=== PATIENT | male | born 1980 | race Caucasian/White ===

== ENCOUNTER 2016-11-13 07:51 | Outpatient (CLI) ==
[2015-04-20 18:07] VITALS: BMI 27.3
[2016-11-13 08:45] LABS: BASOPHILS % (AUTO) 0.6 % (0.0-3.0); EOSINOPHILS % (AUTO) 0.3 % (0.0-7.0); HEMATOCRIT 50.9 % (42.0-52.0); HEMOGLOBIN 17.4 g/dl (14.0-18.0); IMMATURE GRANULOCYTE % (AUTO) 0.6 % (0.0-5.0); LYMPHOCYTES # (AUTO) 1.9 K/uL (0.60-3.4); LYMPHOCYTES % (AUTO) 27.7 (10.0-50.0); MEAN CORPUSCULAR HEMOGLOBIN 31.2 pg (27.0-31.0); MEAN CORPUSCULAR HGB CONC 34.2 (31.8-35.4); MEAN CORPUSCULAR VOLUME 91.2 fl (80.0-94.0); MONOCYTES # (AUTO) 0.5 K/uL (0.4-2.0); MONOCYTES % (AUTO) 7.8 (0-10); NEUTROPHILS # (AUTO) 4.3 K/ul (2.0-6.9); PLATELET COUNT 232 10^3/uL (140-440); RED BLOOD COUNT 5.58 10^6/ul (4.70-6.10); WHITE BLOOD COUNT 6.76 K/ul (4.2-10.2)
[2016-11-13 08:46] LABS: BILIRUBIN,URINE Negative (NEGATIVE); KETONES,URINE Negative (NEGATIVE); LEUKOCYTE ESTERASE ,URINE Negative (NEGATIVE); NITRITE,URINE Negative (NEGATIVE); PROTEIN,URINE 1+ (NEGATIVE); URINE, BLOOD 1+ (NEGATIVE)
[2016-11-13 08:58] LABS: ADD URINE MICROSCOPIC YES
[2016-11-13 09:24] LABS: ALBUMIN 4.2 g/dL (3.4-5.0); ALBUMIN/GLOBULIN RATIO 1.02; ANION GAP 13.2; BILIRUBIN,TOTAL 0.45 mg/dL (0.00-1.20); BUN/CREATININE RATIO 11.76; CALCIUM 9.8 mg/dL (8.2-10.2); CHOL/HDL RATIO 3.3 (4.5-6.4); CREATININE 1.19 mg/dL (0.60-1.10); POTASSIUM 4.2 mmol/L (3.5-5.1); TOTAL PROTEIN 8.3 g/dL (6.4-8.2)
--- NOTE | 2016-11-13 09:26 | MRI ---
EXAM: Brain MRI without contrast. HISTORY: Headache. COMPARISON: None. TECHNIQUE: Multiplanar, multisequence MR images were acquired of the brain before and after adminis tration of intravenous contrast. FINDINGS: The midline structures are central and the craniocervical junction is unremarkable. Ther e is mild enlargement of the subarachnoid space over the convexity that is greatest overlying the pa rietal lobes bilaterally. There is mild widening of some parietal sulci. The ventricles are normal in size. These findings are compatible with normal variation. The brain parenchyma has no diffusion restriction to suggest acute hypoperfusion or infarction. The re are no abnormal T2 hyperintensities or foci of dark gradient echo signal. The corpus callosum love s a normal configuration. The pituitary gland is unremarkable. There are no intraorbital masses. Paranasal sinuses, middle ears and the left mastoid air cells are clear. There is mild mucosal thickening in a few inferior right mastoid air cells. There is mild adenoidal hypertrophy with a few small nasopharyngeal submucosal cysts. Flow voids are present in the major intracranial arteries. There is dolichoectasia of the cavernous segments of both internal carotid arteries, more so on the right. Dural venous sinuses are patent. IMPRESSION: No intracranial hemorrhage, mass or acute cerebral infarct. Negative brain MRI.
== END 2016-11-13 07:52 | disposition home or self-care (01) ==
LOC: RAD 07:51
PROVIDERS: ATTEND Nurse Practitioner Family
DX: R42 Dizziness and giddiness (principal); R10.9 Unspecified abdominal pain; R51 Headache; H53.8 Other visual disturbances; F43.9 Reaction to severe stress, unspecified
CPT/HCPCS: 36415; 80053; 80061; 81001; 84443; 85025; 93005; 93010

== ENCOUNTER 2016-11-20 08:43 | Outpatient (CLI) ==
[2015-04-20 18:07] VITALS: BMI 27.3
[2016-11-20 09:10] LABS: BASOPHILS # (AUTO) 0.1 K/uL (0-0.2); BASOPHILS % (AUTO) 0.5 % (0.0-3.0); EOSINOPHILS % (AUTO) 0.4 % (0.0-7.0); HEMOGLOBIN 16.6 g/dl (14.0-18.0); IMMATURE GRANULOCYTE % (AUTO) 0.6 % (0.0-5.0); LYMPHOCYTES % (AUTO) 20.9 (10.0-50.0); MEAN CORPUSCULAR HEMOGLOBIN 31.1 pg (27.0-31.0); MEAN CORPUSCULAR HGB CONC 34.6 (31.8-35.4); MEAN CORPUSCULAR VOLUME 90.1 fl (80.0-94.0); MONOCYTES # (AUTO) 0.8 K/uL (0.4-2.0); MONOCYTES % (AUTO) 8.5 (0-10); NEUTROPHILS # (AUTO) 6.7 K/ul (2.0-6.9); NEUTROPHILS % (AUTO) 69.1; PLATELET COUNT 223 10^3/uL (140-440); RED BLOOD COUNT 5.33 10^6/ul (4.70-6.10)
[2016-11-20 09:14] LABS: BILIRUBIN,URINE Negative (NEGATIVE); KETONES,URINE Negative (NEGATIVE); LEUKOCYTE ESTERASE ,URINE Negative (NEGATIVE); NITRITE,URINE Negative (NEGATIVE); PH,URINE 5.5 (5-9); PROTEIN,URINE 1+ (NEGATIVE); URINE, BLOOD 1+ (NEGATIVE)
--- NOTE | 2016-11-20 09:18 | CT ---
CT of the abdomen pelvis without intravenous contrast. Comparison: None available. Reason for exam: Unspecified abdominal pain. FINDINGS: No focal consolidation or pleural effusion is seen in the partially imaged lung bases. Image interpretation is limited by the lack of intravenous contrast administration. The liver, gallbladder, spleen, adrenal glands, and pancreas appear grossly unremarkable within limi tations of a noncontrasted study. No hydronephrosis, hydroureter, or nephrolithiasis is seen in either kidney. No focal small bowel dilatation or transition point. The appendix appears grossly unremarkable. No inflammatory changes are seen within the abdominal or pelvic fat. No intra-abdominal free air or pelvic free fluid. The bladder appears grossly unremarkable. No suspicious appearing osteoblastic or osteolytic lesion. Impression: No acute inflammatory findings are seen within the abdomen or pelvis.
[2016-11-20 09:20] LABS: ADD URINE MICROSCOPIC YES
[2016-11-20 09:32] LABS: ALBUMIN 4.3 g/dL (3.4-5.0); ALBUMIN/GLOBULIN RATIO 1.19; ANION GAP 16.9; BILIRUBIN,TOTAL 0.6 mg/dL (0.00-1.20); BUN/CREATININE RATIO 12.6; CALCIUM 10.1 mg/dL (8.2-10.2); CREATININE 1.19 mg/dL (0.60-1.10); POTASSIUM 4.9 mmol/L (3.5-5.1); TOTAL PROTEIN 7.9 g/dL (6.4-8.2)
== END 2016-11-20 08:44 | disposition home or self-care (01) ==
LOC: RAD 08:43
PROVIDERS: ATTEND Nurse Practitioner Family
DX: R10.9 Unspecified abdominal pain (principal); R10.817 Generalized abdominal tenderness; R19.7 Diarrhea, unspecified; R31.9 Hematuria, unspecified
CPT/HCPCS: 36415; 80053; 81001; 82150; 83690; 85025

== ENCOUNTER 2016-11-24 08:55 | Emergency (ER) ==
[2016-11-24 08:56] VITALS: BMI 27.3
[2016-11-24 09:12] VITALS: BP 142/90; TEMP 96.9
[2016-11-24 09:38] LABS: BASOPHILS # (AUTO) 0.1 K/uL (0-0.2); BASOPHILS % (AUTO) 0.5 % (0.0-3.0); EOSINOPHILS % (AUTO) 0.2 % (0.0-7.0); HEMATOCRIT 47.4 % (42.0-52.0); HEMOGLOBIN 16.3 g/dl (14.0-18.0); IMMATURE GRANULOCYTE % (AUTO) 0.5 % (0.0-5.0); LYMPHOCYTES # (AUTO) 1.8 K/uL (0.60-3.4); LYMPHOCYTES % (AUTO) 19.7 (10.0-50.0); MEAN CORPUSCULAR HEMOGLOBIN 31.1 pg (27.0-31.0); MEAN CORPUSCULAR HGB CONC 34.4 (31.8-35.4); MEAN CORPUSCULAR VOLUME 90.5 fl (80.0-94.0); MONOCYTES # (AUTO) 0.6 K/uL (0.4-2.0); MONOCYTES % (AUTO) 6.4 (0-10); NEUTROPHILS # (AUTO) 6.7 K/ul (2.0-6.9); NEUTROPHILS % (AUTO) 72.7; PLATELET COUNT 240 10^3/uL (140-440); RED BLOOD COUNT 5.24 10^6/ul (4.70-6.10); WHITE BLOOD COUNT 9.26 K/ul (4.2-10.2)
[2016-11-24 09:52] LABS: BILIRUBIN,URINE Negative (NEGATIVE); KETONES,URINE Negative (NEGATIVE); LEUKOCYTE ESTERASE ,URINE Negative (NEGATIVE); NITRITE,URINE Negative (NEGATIVE); PH,URINE 7.5 (5-9); PROTEIN,URINE Negative (NEGATIVE); URINE, BLOOD Trace-lysed (NEGATIVE)
[2016-11-24 09:54] LABS: ALBUMIN 4.2 g/dL (3.4-5.0); ALBUMIN/GLOBULIN RATIO 1.17; ANION GAP 17.8; BILIRUBIN,TOTAL 0.62 mg/dL (0.00-1.20); BUN/CREATININE RATIO 14.54; CALCIUM 9.7 mg/dL (8.2-10.2); CREATININE 1.1 mg/dL (0.60-1.10); POTASSIUM 3.8 mmol/L (3.5-5.1); TOTAL PROTEIN 7.8 g/dL (6.4-8.2)
[2016-11-24 09:56] LABS: ADD URINE MICROSCOPIC YES
--- NOTE | 2016-11-24 09:56 | CT ---
EXAM: Noncontrast CT of the abdomen and pelvis. HISTORY: Left lower quadrant pain. COMPARISON: 06/10/2016 TECHNIQUE: Contiguous axial images at 3 mm intervals were obtained from lung bases through the pelv is. No contrast was given. Coronal reformats were reviewed. FINDINGS: The study is limited without contrast. CHEST: The lung bases show no lobar consolidation or effusion. The heart size is within normal sosa its. ABDOMEN: Evaluation of the soft tissue organs is limited without contrast. LIVER: Noncontrast images of the liver show no solid mass lesion or intrahepatic ductal dilatation. BILIARY: The gallbladder is normally distended. No gallstones are noted. No pericholecystic fluid or inflammation. The common bile duct is normal. SPLEEN: The spleen is unremarkable. PANCREAS: The pancreas shows no mass lesion or peripancreatic inflammation. ADRENAL GLANDS: The adrenal glands are normal. RENAL: The kidneys show no hydronephrosis or nephrolithiasis. There are no obstructing ureteral st ones. No solid mass lesions are identified. RETROPERITONEUM: The aorta is unopacified. No aneurysm is identified. No aortic calcifications ar e seen. There is no retroperitoneal or mesenteric adenopathy. BOWEL: The bowel is unopacified. There is no obstruction or inflammatory change. There is no free fluid or free air. No significant inflammatory changes are seen. Scattered diverticula seen with out evidence of acute diverticulitis. The appendix is identified and is normal. PELVIS: BLADDER: The bladder is well distended and appears normal. GENITOURINARY STRUCTURES: Unremarkable. OSSEOUS STRUCTURES: The osseous structures are normal for age. IMPRESSION 1. No acute intra-abdominal abnormality. Limited study without contrast. No obstructing ureteral stones. 2. The appendix is normal. 3. Diverticulosis without evidence of acute diverticulitis.
--- NOTE | 2016-11-24 10:40 | ED.PDOC ---
General ED Provider: Dr. CORINNE MALONE Chief Complaint: Nausea/Vomiting Stated Complaint: abdominal pain Time Seen by Physician: 09:00 (seen with harjinder at all times ) Mode of Arrival: Walk-In Information Source: Patient Exam Limitations: No limitations [facility] and Triage Documentation Reviewed and Agree: Yes GI Complaint Exam - Abdominal Pain Complaint/Exam Onset: Gradual Duration: 14 weeks Symptoms Are: Still present Timing: Intermittent Initial Severity: Mild Current Severity: Mild Location of Pain: Diffuse Character: Reports: Dull Aggravating: Reports: None Alleviating: Reports: None Associated Signs and Symptoms: Denies: Diaphoresis, Fever, Cough, Chest pain, Dizziness, Back pain, Constipation, Blood in stool, Dysuria, Urinary frequency, Decreased urine output, Decreased appetite, Discharge, Nausea, Vomiting, Diarrhea, Decreased activity Related History: Reports: Similar episode AAA Risk Factors: Reports: None Cardiac Risk Factors: Reports: None Testicular Torsion Risk Factors: Reports: None Surgical Obstruction Risk Factors: Reports: None Related Surgical History: Reports: None Abdominal Findings: Present: None Differential Diagnoses: Bowel Obstruction, Constipation, Diverticulitis, Gastroenteritis Review of Systems - Review Of Systems Constitutional: Reports: No symptoms Eyes: Reports: No symptoms Ears, Nose, Mouth, Throat: Reports: No symptoms Respiratory: Reports: No symptoms Cardiac: Reports: No symptoms GI: Reports: Abdominal pain : Reports: No symptoms Musculoskeletal: Reports: No symptoms Skin: Reports: No symptoms Neurological: Reports: No symptoms Endocrine: Reports: No symptoms Hematologic/Lymphatic: Reports: No symptoms All Other Systems: Reviewed and Negative Past Medical History - Past Medical History Previously Healthy: Yes Endocrine: Reports: None Cardiovascular: Reports: None Respiratory: Reports: None Hematological: Reports: None Gastrointestinal: Reports: None Genitourinary: Reports: None Neuro/Psych: Reports: None Musculoskeletal: Reports: None Cancer: Reports: None - Surgical History General Surgical History: Reports: Unknown - Family History Family History: Reports: Unknown - Social History Smoking Status: Current every day smoker, Heavy tobacco smoker Hx Substance Use: No Alcohol Screening: Occasionally Physical Exam - Physical Exam Appearance: Well-appearing, No pain distress, Well-nourished Eyes: VA, EOMI, Conjunctiva clear ENT: Ears normal, Nose normal, Oropharynx normal Respiratory: Airway patent, Breath sounds clear, Breath sounds equal, Respirations nonlabored Cardiovascular: RRR, Pulses normal, No rub, No murmur GI/: Soft, Nontender, No masses, Bowel sounds normal, No Organomegaly Musculoskeletal: Normal strength, ROM intact, No edema, No calf tenderness Skin: Warm, Dry, Normal color Neurological: Sensation intact, Motor intact, Reflexes intact, Cranial nerves intact, Alert, Oriented Psychiatric: Affect appropriate, Mood appropriate Interpretation - Radiology Interpretation Radiology Interpretation By: Radiologist Radiology Results: No acute changes Critical Care Note - Critical Care Note Total Time (mins): 0 Course - Course Hematology/Chemistry: 11/24/16 09:20 11/24/16 09:35 Orders, Labs, Meds: Lab Review 11/24/16 11/24/16 11/24/16 09:20 09:35 09:43 WBC 9.26 RBC 5.24 Hgb 16.3 Hct 47.4 MCV 90.5 MCH 31.1 H MCHC 34.4 RDW Coeff of Domo 13.4 Plt Count 240 Immature Gran % (Auto) 0.5 Neut % (Auto) 72.7 Lymph % (Auto) 19.7 Archuleta % (Auto) 6.4 Eos % (Auto) 0.2 Baso % (Auto) 0.5 Immature Gran # (Auto) 0.1 Neut # 6.7 Lymph # 1.8 Archuleta # 0.6 Eos # 0.0 Baso # 0.1 Sodium 141 Potassium 3.8 Chloride 101 Carbon Dioxide 26 Anion Gap 17.8 BUN 16 Creatinine 1.10 Estimated GFR (MDRD) 75.00 BUN/Creatinine Ratio 14.54 Glucose 103 H Calcium 9.7 Total Bilirubin 0.62 AST 28 ALT 22 Alkaline Phosphatase 73 Total Protein 7.8 Albumin 4.2 Globulin 3.6 Albumin/Globulin Ratio 1.17 Amylase 40 Lipase 48 Urine Color Yellow Urine Clarity Clear Urine pH 7.5 Ur Specific [place] 1.020 Urine Protein Negative Urine Glucose (UA) Negative Urine Ketones Negative Urine Blood Trace-lysed Urine Nitrite Negative Urine Bilirubin Negative Urine Urobilinogen 0.2 Ur Leukocyte Esterase Negative Urine Microscopic RBC 2-5 Ur Squamous Epith Cells Not present Orders Category Date Time Status AMYLASE Stat LAB 11/24/16 09:35 Completed CBC W/ AUTO DIFF Stat LAB 11/24/16 09:20 Ordered COMPREHENSIVE METABOLIC PANEL Stat LAB 11/24/16 09:20 Ordered LIPASE Stat LAB 11/24/16 09:35 Completed URINALYSIS C & S IF INDICATED Stat LAB 11/24/16 09:[address] ABDOMEN/PELVIS WO CONTRAST Stat RADS 11/24/16 09:21 Ordered Vital Signs: Temp Pulse Resp BP Pulse Ox 11/24/16 08:57 96.9 F L 69 20 142/90 H 96 Departure - Departure Time of Disposition: 10:41 Disposition: HOME SELF-CARE Discharge Problem: Nausea, Vomiting Abdominal pain Qualifiers: Abdominal location: generalized Qualifier Code: (R10.84) Generalized abdominal pain Instructions: Abdominal Pain (ED) Condition: Good Pt referred to PMD for follow-up: Yes Additional Instructions: Please call your Family Physician as soon as possible to schedule a follow-up appointment. Allergies/Adverse Reactions: Allergies venom-wasp [wasp venom] Adverse Reaction (Verified 11/24/16 09:05) IV Contrast Adverse Reaction (Uncoded 01/01/15 17:24)
== END 2016-11-24 10:57 | disposition home or self-care (01) ==
LOC: ED 08:55
DX: R11.2 Nausea with vomiting, unspecified (principal); R10.84 Generalized abdominal pain; F17.210 Nicotine dependence, cigarettes, uncomplicated
CPT/HCPCS: 36415; 80053; 81001; 82150; 83690; 85025; 99283

== ENCOUNTER 2017-06-08 02:04 | Emergency (ER) ==
[2017-06-08] MEDS ORDERED: LIDOCAINE HCL 1% SDV SUBCUT STA (02:12)
[2017-06-08 02:14] VITALS: TEMP 97.8; BMI 33.4
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
[2017-06-08 02:45] VITALS: BP 136/88
== END 2017-06-08 02:36 | disposition home or self-care (01) ==
LOC: ED 02:04
DX: S61.217A Laceration without foreign body of left little finger without damage to nail, initial encounter (principal); W25.XXXA Contact with sharp glass, initial encounter; F17.210 Nicotine dependence, cigarettes, uncomplicated
CPT/HCPCS: 99283

== ENCOUNTER 2017-07-15 21:35 | Emergency (ER) | payer OTHER ==
[2017-07-15 21:38] VITALS: TEMP 97.6; BMI 28.1
[2017-07-15] MEDS ORDERED: AUGMENTIN 500-125 MG TAB PO STA (21:46)
[2017-07-15] MEDS ORDERED: CATAPRES PO STA (21:46)
--- NOTE | 2017-07-15 21:50 | ED.PDOC ---
General ED Provider: Dr. VA GARCIA Chief Complaint: Sore Throat Stated Complaint: c/o sore throat, hurts to swallow, left side neck swollen,. also c/o leg are swollen some, takes water pill. Time Seen by Physician: 21:50 Mode of Arrival: Police Information Source: Patient, Police Primary Care Provider: [facility] Nursing and Triage Documentation Reviewed and Agree: Yes Reviewed sepsis parameters & appropriate labs ordered?: No System Inflammatory Response Syndrome: Not Applicable Sepsis Protocol: For patient's 13 years and over: Temp is 96.8 and below OR 101 and greater Pulse >90 BPM Resp >20/minute Acutely Altered Mental Status Are patient's symptoms suggestive of a new infection, such as: -Pneumonia -Skin, Soft Tissue -Endocarditis -UTI -Bone, Joint Infection -Implantable Device -Acute Abdominal Infection -Wound Infection -Meningitis -Blood Stream Catheter Infection -Unknown EENT Complaint Exam - Throat Complaint/Exam Symptoms Are: Still present Timimg: Constant Initial Severity: Mild Current Severity: Mild Aggravating: Reports: Eating Alleviating: Reports: None Associated Signs and Symptoms: Reports: Dysphagia. Denies: Fever, Drooling, Foreign body sensation, Chills, Cough, Wheezing, Hoarseness, Sinus discomfort, Nasal congestion, Difficulty breathing, Lethargy, Irritability, Decreased activity, Vomiting, Diarrhea, Decreased hearing, Ear drainage Uvula Midline: No Darshana-tonsillar Fluctuence: No Scarlatinaform Rash Present: No Stridor Present: No Sinus Tenderness Present: No Tonsillar Hypertrophy Present: No Tonsillar Exudate Present: No Darshana-tonsillar Swelling Present: No Adenopathy Present: No Splenomegaly Present: No Differential Diagnoses: Pharyngitis Review of Systems - Review Of Systems Constitutional: Reports: No symptoms Eyes: Reports: No symptoms Ears, Nose, Mouth, Throat: Reports: Throat pain Respiratory: Reports: No symptoms Cardiac: Reports: Edema GI: Reports: No symptoms : Reports: No symptoms Musculoskeletal: Reports: No symptoms Skin: Reports: No symptoms Neurological: Reports: No symptoms Endocrine: Reports: No symptoms Hematologic/Lymphatic: Reports: No symptoms All Other Systems: Reviewed and Negative Past Medical History - Past Medical History Previously Healthy: Yes Endocrine: Reports: None Cardiovascular: Reports: Hypertension Respiratory: Reports: None Hematological: Reports: None Gastrointestinal: Reports: None Genitourinary: Reports: None Neuro/Psych: Reports: None Musculoskeletal: Reports: None Cancer: Reports: None - Surgical History General Surgical History: Reports: Unknown - Family History Family History: Reports: Unknown - Social History Smoking Status: Former smoker Hx Substance Use: No Alcohol Screening: None - Immunizations Tetanus Shot up to Date: Yes Physical Exam - Physical Exam Appearance: Well-appearing, No pain distress, Well-nourished Eyes: VA, EOMI, Conjunctiva clear ENT: Erythema Respiratory: Airway patent, Breath sounds clear, Breath sounds equal, Respirations nonlabored Cardiovascular: RRR, Pulses normal, No rub, No murmur GI/: Soft, Nontender, No masses, Bowel sounds normal, No Organomegaly Musculoskeletal: Normal strength, ROM intact, No edema, No calf tenderness Skin: Warm, Dry, Normal color Neurological: Sensation intact, Motor intact, Reflexes intact, Cranial nerves intact, Alert, Oriented Psychiatric: Affect appropriate, Mood appropriate Re-Evaluation - Re-Evaluation Time of Re-Evaluation: 22:23 Status: Improved Critical Care Note - Critical Care Note Total Time (mins): 20 Course - Course Orders, Labs, Meds: Orders Category Date Time Status MOLECULAR GROUP A STREP Stat LAB 07/15/17 21:46 Uncollected Amoxicillin/Potassium Clav [Augmentin 500-125 mg Tab] MEDS 07/15/17 21:46 Stat 1 tab PO ONCE STA Clonidine HCl [Catapres] MEDS 07/15/17 21:46 Stat 0.2 mg PO ONCE STA Medications Discontinued Medications Generic Name Dose Route Start Last Admin Trade Name Freq PRN Reason Stop Dose Admin Amoxicillin/Clavulanate Potassium 1 tab 07/15/17 21:46 Augmentin 500-125 Mg Tab PO 07/15/17 21:47 ONCE STA Clonidine 0.2 mg 07/15/17 21:46 Catapres PO 07/15/17 21:47 ONCE STA Vital Signs: Temp Pulse Resp BP Pulse Ox 07/15/17 21:36 97.6 F 85 14 147/100 H 100 Departure - Departure Time of Disposition: 21:55 Disposition: HOME SELF-CARE Discharge Problem: Sore throat symptom, Essential hypertension Instructions: Pharyngitis (ED) Condition: Stable Pt referred to PMD for follow-up: Yes IPMP verified?: No Additional Instructions: No salt diet F/u in C in 3-4 days keep checking BP take Lisinopril/HCTZ 10-12.5 po bid Prescriptions: Amoxicillin/Potassium Clav [Augmentin 500-125 mg Tab] 1 tab PO Q12HR #14 tablet Prednisone 10 mg PO BIDWM #14 tablet Allergies/Adverse Reactions: Allergies venom-wasp [wasp venom] Adverse Reaction (Verified 11/24/16 09:05) IV Contrast Adverse Reaction (Uncoded 01/01/15 17:24) Home Medications: Ambulatory Orders Amoxicillin/Potassium Clav [Augmentin 500-125 mg Tab] 1 tab PO Q12HR #14 tablet 07/15/17 Aspirin [Aspirin Chewable] 81 mg PO DAILY 07/15/17 Gabapentin 100 mg PO DAILY 07/15/17 Lisinopril/Hydrochlorothiazide [Lisinopril-Hctz 10-12.5 mg Tab] 1 each PO DAILY 07/15/17 Prednisone 10 mg PO BIDWM #14 tablet 07/15/17 Disposition Discussed With: Patient
[2017-07-15 22:07] VITALS: BP 134/75
== END 2017-07-15 22:35 | disposition home or self-care (01) ==
LOC: ED 21:35
DX: J02.9 Acute pharyngitis, unspecified (principal); I10 Essential (primary) hypertension; M79.89 Other specified soft tissue disorders
CPT/HCPCS: 87651; 99283

== ENCOUNTER 2017-08-25 15:57 | Emergency (ER) ==
[2017-08-25 16:10] VITALS: BP 120/97; TEMP 97.9; BMI 28.0
[2017-08-25] MEDS ORDERED: LIDOCAINE HCL 1% SDV SUBCUT STA (16:29)
--- NOTE | 2017-08-25 16:31 | ED.PDOC ---
General ED Provider: Dr. CORINNE MALONE Chief Complaint: Laceration Stated Complaint: head injury Time Seen by Physician: 16:00 (no loc, no neck pain) Mode of Arrival: Walk-In Information Source: Patient, Police Exam Limitations: No limitations [facility] and Triage Documentation Reviewed and Agree: Yes Reviewed sepsis parameters & appropriate labs ordered?: Yes System Inflammatory Response Syndrome: Not Applicable Sepsis Protocol: For patient's 13 years and over: Temp is 96.8 and below OR 101 and greater Pulse >90 BPM Resp >20/minute Acutely Altered Mental Status Are patient's symptoms suggestive of a new infection, such as: -Pneumonia -Skin, Soft Tissue -Endocarditis -UTI -Bone, Joint Infection -Implantable Device -Acute Abdominal Infection -Wound Infection -Meningitis -Blood Stream Catheter Infection -Unknown Trauma/Injury Complaint Exam - Head Injury Complaint/Exam Location of Pain: Reports: Scalp Mechanism of Injury: Reports: Trauma Onset/Duration: 30 min ago Symptoms Are: Still present Initial Severity: Mild Current Severity: Mild Character: Reports: Dull Aggravating: Reports: None Alleviating: Reports: None Associated Signs and Symptoms: Denies: Confusion, Memory loss, Seizure, Epistaxis, Dental malocclusion, Neck pain, Nausea, Vomiting Loss of Consciousness: None SDH Risk Factors: Present: None Cervical Spine Injury Risk Factors: Present: None Related Surgical History: Reports: None Immobilization Removed Post Exam: No Head Injury Findings: Present: Normal findings Glascow Coma Scale (see protocol): 15 Focal Weakness: Present: None Focal Sensory Loss: Present: None Gait: Normal Gag Reflex Present: No Finger to Nose: Normal Babinski Sign: Negative Right, Negative Left Heel to Toe Normal: Yes Nexus Low Risk Criteria: No post-midline CS tender, No evidence of intoxicat., No Altered LOC, No focal neuro deficit, No distracting injuries Differential Diagnoses: Other (laceration) Review of Systems - Review Of Systems Constitutional: Reports: No symptoms Eyes: Reports: No symptoms Ears, Nose, Mouth, Throat: Reports: No symptoms Respiratory: Reports: No symptoms Cardiac: Reports: No symptoms GI: Reports: No symptoms : Reports: No symptoms Musculoskeletal: Reports: No symptoms Skin: Reports: Other (laceration) Neurological: Reports: No symptoms Endocrine: Reports: No symptoms Hematologic/Lymphatic: Reports: No symptoms All Other Systems: Reviewed and Negative Past Medical History - Past Medical History Previously Healthy: Yes Endocrine: Reports: None Cardiovascular: Reports: Hypertension Respiratory: Reports: None Hematological: Reports: None Gastrointestinal: Reports: None Genitourinary: Reports: None Neuro/Psych: Reports: None Musculoskeletal: Reports: None Cancer: Reports: None - Surgical History General Surgical History: Reports: Unknown - Family History Family History: Reports: Unknown - Social History Smoking Status: Former smoker Hx Substance Use: No Alcohol Screening: None - Immunizations Tetanus Shot up to Date: No Physical Exam - Physical Exam Appearance: Well-appearing, No pain distress, Well-nourished Eyes: VA, EOMI, Conjunctiva clear ENT: Ears normal, Nose normal, Oropharynx normal Respiratory: Airway patent, Breath sounds clear, Breath sounds equal, Respirations nonlabored Cardiovascular: RRR, Pulses normal, No rub, No murmur GI/: Soft, Nontender, No masses, Bowel sounds normal, No Organomegaly Musculoskeletal: Normal strength, ROM intact, No edema, No calf tenderness Skin: Warm, Dry, Normal color Neurological: Sensation intact, Motor intact, Reflexes intact, Cranial nerves intact, Alert, Oriented Psychiatric: Affect appropriate, Mood appropriate Procedures - Laceration/Wound Repair No standard instances Wound Description: Linear Wound Length (cm): 1 cm Wound Width: 1mm Wound Depth: 1mm Wound Explored: Clean Wound Irrigated: No Wound Prep: Chavaiclefranki Anesthesia: Lidocaine (plain 1ml) Wound Repaired With: Sutures Suture Size and Type: 3 nylon Number of Miri: 3 Critical Care Note - Critical Care Note Total Time (mins): 0 Course - Course Orders, Labs, Meds: Orders Category Date Time Status Lidocaine HCl/Pf [Lidocaine HCl 1% Sdv] MEDS 08/25/17 16:29 Stat 5 ml SUBCUT ONCE STA Medications Generic Name Dose Route Start Last Admin Trade Name Freq PRN Reason Stop Dose Admin Lidocaine HCl 5 ml 08/25/17 16:29 Lidocaine Hcl 1% Sdv SUBCUT 08/25/17 16:30 ONCE STA Vital Signs: Temp Pulse Resp BP Pulse Ox 08/25/17 15:58 97.9 F 112 H 20 120/97 H 97 Departure - Departure Time of Disposition: 16:32 (see photos) Disposition: HOME SELF-CARE Discharge Problem: Laceration - injury Instructions: Laceration (DC) Condition: Good Pt referred to PMD for follow-up: Yes IPMP verified?: No Additional Instructions: Please call your Family Physician as soon as possible to schedule a follow-up appointment. Allergies/Adverse Reactions: Allergies venom-wasp [wasp venom] Adverse Reaction (Verified 08/25/17 16:06) IV Contrast Adverse Reaction (Uncoded 08/25/17 16:06) Home Medications: Ambulatory Orders Aspirin [Aspirin Chewable] 81 mg PO DAILY 07/15/17 Gabapentin 100 mg PO DAILY 07/15/17 Lisinopril/Hydrochlorothiazide [Lisinopril-Hctz 10-12.5 mg Tab] 1 each PO DAILY 07/15/17 Omeprazole 20 mg PO DAILY 08/25/17
== END 2017-08-25 16:50 | disposition home or self-care (01) ==
LOC: ED 15:57
DX: S01.01XA Laceration without foreign body of scalp, initial encounter (principal); Y04.2XXA Assault by strike against or bumped into by another person, initial encounter
CPT/HCPCS: 99283